=== PATIENT | female | born 1965 | race African-American/Black ===

== ENCOUNTER 2017-12-19 10:07 | Day surgery (SDC) | payer BC ==
[2017-12-12 12:30] LABS: ADD MAN DIFF? NO
[2017-12-12 12:35] LABS: WHITE BLOOD COUNT 4.6 10^3/ul (4.8-10.8)
[2017-12-12 12:35] LABS: BASOPHILS % 0.7 % (0.0-2.0); EOSINOPHILS # 0.1 10^3/ul (0.0-0.5); EOSINOPHILS % 1.1 % (0.0-7.0); HEMATOCRIT 40.5 % (37.0-47.0); HEMOGLOBIN 13.1 g/dl (12.0-16.0); LYMPHOCYTES # 1.3 10^3/ul (0.8-2.9); LYMPHOCYTES % 28.4 % (15.0-51.0); MEAN CORPUSCULAR HEMOGLOBIN 27.7 pg (29.0-33.0); MEAN CORPUSCULAR HGB CONC 32.3 g/dl (32.0-37.0); MEAN CORPUSCULAR VOLUME 85.6 fl (82.0-101.0); MEAN PLATELET VOLUME 9.9 fl (7.4-10.4); MONOCYTE # 0.4 10^3/ul (0.3-0.9); MONOCYTES % 9.5 % (0.0-11.0); NEUTROPHIL # 2.8 10^3/ul (1.6-7.5); NEUTROPHILS % 60.1 % (39.0-77.0); PLATELET COUNT 264 10^3/UL (140-415); RED BLOOD COUNT 4.73 10^6/ul (4.20-5.40); RED CELL DISTRIBUTION WIDTH 14.4 % (11.5-14.5)
[2017-12-12 12:56] LABS: INR 0.88; PARTIAL THROMBOPLASTIN TIME 29.4 Sec (25.0-35.0); PT RATIO 0.9
[2017-12-12 12:57] LABS: ALANINE AMINOTRANSFERASE 45 IU/L (13-69); ALBUMIN 4.7 g/dl (3.3-4.9); ALBUMIN/GLOBULIN RATIO 1.51; ALKALINE PHOSPHATASE 72 IU/L (42-121); ANION GAP 16 (8-16); ASPARTATE AMINO TRANSFERASE 23 IU/L (15-46); BILIRUBIN,INDIRECT 0.5 mg/dl (0-1.1); BILIRUBIN,TOTAL 0.5 mg/dl (0.2-1.3); CARBON DIOXIDE 28 mmol/L (21-31); CHLORIDE 103 mmol/L (97-110); GLUCOSE 84 mg/dl (70-220); TOTAL PROTEIN 7.8 g/dl (6.1-8.1)
[2017-12-12 12:59] LABS: BLOOD UREA NITROGEN 8 mg/dl (7-20); CALCIUM 9.6 mg/dl (8.4-10.2); POTASSIUM 4.6 mmol/L (3.5-5.1); SODIUM 142 mmol/L (135-144)
[~2017-12-19 10:07] MED LIST: CEFAZOLIN 1 GM INJ; LACTATED RINGER'S 1,000 ML IV; LIDOCAINE 2% (SDV) 5 ML INJ; ROCURONIUM 50 MG INJ
[2017-12-19] MEDS ORDERED: MIDAZOLAM 1 MG/ML 2 ML INJ (12:51)
[2017-12-19] MEDS ORDERED: FENTAnyl 50 MCG/ML VIAL (13:23)
[2017-12-19] MEDS ORDERED: EPHEDrine SULFATE 50 MG/5 ML SYG IV (13:30)
[2017-12-19] MEDS ORDERED: METOCLOPRAMIDE 10 MG INJ IV (13:30)
[2017-12-19] MEDS ORDERED: DIPHENHYDRAMINE 50 MG INJ IV (13:30)
[2017-12-19] MEDS ORDERED: HYDROmorphONE (0.2 MG/ML) 10ML SYG IV ×2 (13:30)
[2017-12-19] MEDS ORDERED: hydrALAzine 20 MG INJ IV (13:30)
[2017-12-19] MEDS ORDERED: FENTAnyl 50 MCG/ML VIAL IV ×3 (13:30)
[2017-12-19] MEDS ORDERED: MIDAZOLAM 1 MG/ML 2 ML INJ IV (13:30)
[2017-12-19] MEDS ORDERED: KETOROLAC 30 MG INJ IV (13:30)
[2017-12-19] MEDS ORDERED: ALBUTEROL 0.083% (NEB) 2.5 MG/3 ML AMP HHN (13:30)
[2017-12-19] MEDS ORDERED: OXYCODONE/ACETAMINOPHEN (5/325) TAB PO ×2 (13:30)
[2017-12-19] MEDS ORDERED: LABETALOL HCL 20MG INJ IV (13:30)
[2017-12-19] MEDS ORDERED: DEXAMETHASONE 4 MG/ML 1 ML INJ (14:04)
[2017-12-19] MEDS ORDERED: ONDANSETRON 4 MG INJ (14:05)
[2017-12-19] MEDS ORDERED: PROPOFOL 100 ML (14:05)
[2017-12-19] MEDS ORDERED: SUGAMMADEX SODIUM 200 MG/2 ML VIAL IV (14:45)
[2017-12-19] MEDS: ONDANSETRON 4 MG INJ IV (15:37)
[2017-12-19] MEDS: MEPERIDINE 25 MG INJ IV (15:37)
[2017-12-19] MEDS: HYDROmorphONE (0.2 MG/ML) 10ML SYG IV ×4 (15:37→16:04)
== END 2017-12-19 17:13 | disposition home or self-care (01) ==
LOC: SDS 10:07
DX: K66.0 Peritoneal adhesions (postprocedural) (postinfection) (principal)
CPT/HCPCS: 49329; 71045; 80053; 84702; 85025; 85610; 85730; 93005

== ENCOUNTER 2018-10-07 15:44 | Emergency (ER) | payer BC ==
[2018-10-07 17:43] LABS: ADD MAN DIFF? NO
[2018-10-07 17:46] LABS: WHITE BLOOD COUNT 5.8 10^3/ul (4.8-10.8)
[2018-10-07 17:46] LABS: BASOPHILS % 0.5 % (0.0-2.0); EOSINOPHILS % 0.5 % (0.0-7.0); HEMATOCRIT 43.9 % (37.0-47.0); HEMOGLOBIN 14.2 g/dl (12.0-16.0); LYMPHOCYTES # 1.6 10^3/ul (0.8-2.9); LYMPHOCYTES % 27.1 % (15.0-51.0); MEAN CORPUSCULAR HGB CONC 32.3 g/dl (32.0-37.0); MEAN CORPUSCULAR VOLUME 86.4 fl (82.0-101.0); MEAN PLATELET VOLUME 10.1 fl (7.4-10.4); MONOCYTE # 0.4 10^3/ul (0.3-0.9); MONOCYTES % 7.3 % (0.0-11.0); NEUTROPHIL # 3.7 10^3/ul (1.6-7.5); NEUTROPHILS % 64.4 % (39.0-77.0); PLATELET COUNT 295 10^3/UL (140-415); RED BLOOD COUNT 5.08 10^6/ul (4.20-5.40); RED CELL DISTRIBUTION WIDTH 14.2 % (11.5-14.5)
[2018-10-07 17:51] LABS: ADD UMIC NO; UR ASCORBIC ACID NEGATIVE (NEGATIVE); UR BILIRUBIN (Dip) NEGATIVE (NEGATIVE); UR BLOOD (Dip) NEGATIVE (NEGATIVE); UR CLARITY CLEAR (CLEAR); UR COLOR COLORLESS (YELLOW); UR GLUCOSE (Dip) NEGATIVE (NEGATIVE); UR KETONES (Dip) NEGATIVE (NEGATIVE); UR LEUKOCYTE ESTERASE (Dip) NEGATIVE Leu/ul (NEGATIVE); UR NITRITE (Dip) NEGATIVE (NEGATIVE); UR SPECIFIC GRAVITY (Dip) 1.001 (1.003-1.030); UR TOTAL PROTEIN (Dip) NEGATIVE (NEGATIVE); UR UROBILINOGEN (Dip) NEGATIVE (NEGATIVE)
[2018-10-07 18:09] LABS: ALANINE AMINOTRANSFERASE 15 IU/L (13-69); ALBUMIN 5.2 g/dl (3.3-4.9); ALBUMIN/GLOBULIN RATIO 1.26; ALKALINE PHOSPHATASE 72 IU/L (42-121); ANION GAP 12 (5-13); ASPARTATE AMINO TRANSFERASE 26 IU/L (15-46); BLOOD UREA NITROGEN 4 mg/dl (7-20); CALCIUM 10.2 mg/dl (8.4-10.2); CARBON DIOXIDE 25 mmol/L (21-31); CHLORIDE 107 mmol/L (97-110); CREATININE 0.67 mg/dl (0.44-1.00); Estimated GFR > 60 mL/min (>60); GLUCOSE 89 mg/dl (70-220); LIPASE 93 U/L (23-300); POTASSIUM 3.6 mmol/L (3.5-5.1); SODIUM 144 mmol/L (135-144); TOTAL PROTEIN 9.3 g/dl (6.1-8.1)
[2018-10-07] MEDS: IOHEXOL 300MG/ML 150 ML BTL (18:49)
[2018-10-07] MEDS: SOD CHLORIDE 0.9% 100 ML (18:49)
[2018-10-07] MEDS: ONDANSETRON 4 MG INJ IV (20:36)
== END 2018-10-07 21:13 | disposition home or self-care (01) ==
LOC: E/R 15:44
DX: R10.84 Generalized abdominal pain (principal); R40.2252 Coma scale, best verbal response, oriented, at arrival to emergency department; R40.2362 Coma scale, best motor response, obeys commands, at arrival to emergency department; R40.2142 Coma scale, eyes open, spontaneous, at arrival to emergency department; R11.0 Nausea
CPT/HCPCS: 36415; 74177; 80053; 81003; 83690; 84703; 85025; 96374; 99285-25

== ENCOUNTER → 2018-10-27 | Outpatient (CLI) | payer BC ==
[2018-10-27 10:59] LABS: ADD MAN DIFF? NO
[2018-10-27 11:01] LABS: BASOPHILS % 0.6 % (0.0-2.0); EOSINOPHILS # 0.1 10^3/ul (0.0-0.5); EOSINOPHILS % 1.3 % (0.0-7.0); HEMATOCRIT 39.8 % (37.0-47.0); HEMOGLOBIN 12.9 g/dl (12.0-16.0); LYMPHOCYTES # 0.9 10^3/ul (0.8-2.9); LYMPHOCYTES % 19.5 % (15.0-51.0); MEAN CORPUSCULAR HEMOGLOBIN 28.4 pg (29.0-33.0); MEAN CORPUSCULAR HGB CONC 32.4 g/dl (32.0-37.0); MEAN CORPUSCULAR VOLUME 87.5 fl (82.0-101.0); MEAN PLATELET VOLUME 9.9 fl (7.4-10.4); MONOCYTE # 0.5 10^3/ul (0.3-0.9); MONOCYTES % 10.1 % (0.0-11.0); NEUTROPHIL # 3.2 10^3/ul (1.6-7.5); NEUTROPHILS % 68.1 % (39.0-77.0); PLATELET COUNT 256 10^3/UL (140-415); RED BLOOD COUNT 4.55 10^6/ul (4.20-5.40); RED CELL DISTRIBUTION WIDTH 14.4 % (11.5-14.5)
[2018-10-27 11:01] LABS: WHITE BLOOD COUNT 4.7 10^3/ul (4.8-10.8)
[2018-10-27 11:31] LABS: ALANINE AMINOTRANSFERASE 17 IU/L (13-69); ALBUMIN 4.7 g/dl (3.3-4.9); ALBUMIN/GLOBULIN RATIO 1.74; ALKALINE PHOSPHATASE 61 IU/L (42-121); ANION GAP 9 (5-13); ASPARTATE AMINO TRANSFERASE 25 IU/L (15-46); BILIRUBIN,INDIRECT 0.6 mg/dl (0-1.1); BILIRUBIN,TOTAL 0.6 mg/dl (0.2-1.3); BLOOD UREA NITROGEN 4 mg/dl (7-20); CALCIUM 9.7 mg/dl (8.4-10.2); CARBON DIOXIDE 29 mmol/L (21-31); CHLORIDE 104 mmol/L (97-110); CREATININE 0.64 mg/dl (0.44-1.00); Estimated GFR > 60 mL/min (>60); GLUCOSE 84 mg/dl (70-220); LIPASE 57 U/L (23-300); POTASSIUM 4.2 mmol/L (3.5-5.1); SODIUM 142 mmol/L (135-144); TOTAL PROTEIN 7.4 g/dl (6.1-8.1)
== END | disposition home or self-care (01) ==
LOC: LAB 10:24
DX: R10.11 Right upper quadrant pain (principal)
CPT/HCPCS: 80053; 83690; 85025; 85651

== ENCOUNTER → 2018-10-28 | Outpatient (CLI) | payer BC | END | disposition home or self-care (01) | LOC: U/S 11:22 | DX: R10.11 Right upper quadrant pain (principal) ==

== ENCOUNTER → 2018-10-29 | Outpatient (CLI) | payer BC | END | disposition home or self-care (01) | LOC: U/S 10:54 | DX: R10.11 Right upper quadrant pain (principal) | CPT/HCPCS: 76705 ==

== ENCOUNTER → 2019-01-27 | Outpatient (CLI) | payer BC ==
[2019-01-27 14:15] LABS: ADD MAN DIFF? NO
[2019-01-27 14:17] LABS: EOSINOPHILS # 0.1 10^3/ul (0.0-0.5); EOSINOPHILS % 1.5 % (0.0-7.0); HEMATOCRIT 38.1 % (37.0-47.0); HEMOGLOBIN 12.2 g/dl (12.0-16.0); LYMPHOCYTES # 1.2 10^3/ul (0.8-2.9); LYMPHOCYTES % 30.8 % (15.0-51.0); MEAN CORPUSCULAR HEMOGLOBIN 27.6 pg (29.0-33.0); MEAN CORPUSCULAR VOLUME 86.2 fl (82.0-101.0); MEAN PLATELET VOLUME 9.7 fl (7.4-10.4); MONOCYTE # 0.4 10^3/ul (0.3-0.9); MONOCYTES % 9.2 % (0.0-11.0); NEUTROPHIL # 2.3 10^3/ul (1.6-7.5); NEUTROPHILS % 57.3 % (39.0-77.0); PLATELET COUNT 285 10^3/UL (140-415); RED BLOOD COUNT 4.42 10^6/ul (4.20-5.40); RED CELL DISTRIBUTION WIDTH 13.2 % (11.5-14.5)
[2019-01-27 14:25] LABS: HEMOGLOBIN A1C 5.3 % (0-5.9)
[2019-01-27 15:24] LABS: ERYTHROCYTE SEDIMENTATION RATE 12 mm/Hr (0-30)
[2019-01-27 15:40] LABS: FOLATE 16.3 ng/ml (2.8-20.0)
== END | disposition home or self-care (01) ==
LOC: LAB 13:39
DX: M79.673 Pain in unspecified foot (principal); M54.5 Low back pain; G43.909 Migraine, unspecified, not intractable, without status migrainosus
CPT/HCPCS: 82607; 82746; 83036; 85025; 85651; 86320